=== PATIENT | male | born 1955 | race African-American/Black ===

== ENCOUNTER 2017-07-10 16:04 | Inpatient (IN) | payer MEDICAID ==
[~2017-07-10] VITALS: Ht 185.4 cm; Wt 95.7 kg
[2017-07-10 17:13] LABS: Basophils # (auto) 0.2 uL; Basophils % (auto) 1.3 % (0.0-2.0); Eosinophils # (auto) 0.1 uL; Hematocrit 40.2 % (41.0-53.0); Hemoglobin 13.5 g/dL (13.5-17.5); Lymphocytes # (auto) 2.3 uL; Mean Corpuscular Hemoglobin 32.7 pg (28.0-32.0); Mean Corpuscular Hgb Conc. 33.5 g/dL (32.0-36.0); Mean Corpuscular Volume 97.6 fL (80.0-100.0); Monocytes # (auto) 1.6 uL; Monocytes % (auto) 13.5 % (0.0-12.0); Neutrophils # (auto) 7.9 uL; Neutrophils % (auto) 65.2 % (37.0-80.0); Nucleated Red Blood Cells % 0.1 %; Platelet Count (auto) 355 10^3/uL (140-450); Red Blood Cells 4.12 10^6/uL (4.5-5.90); Red Cell Distribution Width 12.4 % (11.8-14.3); White Blood Cell 12.1 10^3/uL (4.4-10.8)
[2017-07-10 18:37] LABS: BUN/Creatinine Ratio 12.6; Bilirubin, Total 0.9 mg/dL (0.2-1.0); Calcium 8.9 mg/dL (8.5-10.1); Potassium 3.4 mmol/L (3.5-5.1); Total Protein 8.6 g/dL (6.4-8.2)
[2017-07-10 23:20] LABS: INR 1.13 (0.9-1.15); Prothrombin Time 12.3 sec (9.37-12.3)
[2017-07-11] MEDS ORDERED: ENOXAPARIN SOD 100 MG/1 ML SYRINGE SC ONE (00:45)
[2017-07-11 00:53] LABS: Urine Bacteria NONE SEEN /hpf (None Seen); Urine Blood Negative /uL (Negative); Urine Specific Gravity 1.009 (1.001-1.035); Urine WBC 1 /hpf (0 - 3)
[2017-07-11] MEDS ORDERED: HYDROcodone-ACET 5/325MG TAB PO ONE (01:00)
[2017-07-11] MEDS ORDERED: IOHEXOL 350 MG/ML 100ML IJ ONE (01:40)
[2017-07-11] MEDS ORDERED: ONDANSETRON HCL 4 MG/2 ML VIAL IV ONE (04:30)
[2017-07-11] MEDS ORDERED: HYDROmorphone HCL 2 MG/ML VL IV ONE (04:30)
[2017-07-11] MEDS ORDERED: NITROGLYCERIN 0.4 MG SL TAB SL PRN (05:45)
[2017-07-11] MEDS ORDERED: TEMAZEPAM 15 MG CAP PO PRN (05:45)
[2017-07-11] MEDS ORDERED: ONDANSETRON HCL 4 MG/2 ML VIAL IV PRN (05:45)
[2017-07-11] MEDS ORDERED: ACETAMINOPHEN 325 MG TAB PO PRN (05:45)
[2017-07-11] MEDS ORDERED: MORPHINE SULFATE 10 MG/ML INJ 1ML SDV IV PRN ×2 (05:45→13:45)
[2017-07-11] MEDS ORDERED: HEPARIN DRIP/D5W 100UNITS/ML 250 ML IV SCH (05:51)
[2017-07-11] MEDS ORDERED: HEPARIN SODIUM (PORCINE) 5000 UNITS/ML 1ML VIAL IV ONE (06:00)
[2017-07-11] MEDS: SODIUM CHLORIDE 0.9% 1,000 ML IV SCH ×2 (06:07→18:35)
[2017-07-11 06:56] LABS: Basophils # (auto) 0.1 uL; Eosinophils # (auto) 0.1 uL; Eosinophils % (auto) 0.8 % (0.0-7.0); Hemoglobin 13.3 g/dL (13.5-17.5); Lymphocytes # (auto) 2.7 uL; Lymphocytes % (auto) 22.7 % (10.0-50.0); Mean Corpuscular Hemoglobin 33.3 pg (28.0-32.0); Mean Corpuscular Volume 97.9 fL (80.0-100.0); Monocytes # (auto) 1.4 uL; Monocytes % (auto) 11.4 % (0.0-12.0); Neutrophils # (auto) 7.7 uL; Neutrophils % (auto) 64.1 % (37.0-80.0); Nucleated Red Blood Cells % 0.1 %; Platelet Count (auto) 325 10^3/uL (140-450); Red Blood Cells 3.98 10^6/uL (4.5-5.90); Red Cell Distribution Width 12.1 % (11.8-14.3)
[2017-07-11 07:24] LABS: INR 1.23 (0.9-1.15); Prothrombin Time 13.4 sec (9.37-12.3)
[2017-07-11 07:49] LABS: Partial Thromboplastin Time 95.8 sec (22.64-33.71)
[2017-07-11] MEDS ORDERED: CHOL20007 PO (08:59)
[2017-07-11] MEDS ORDERED: KEP500T PO (08:59)
[2017-07-11] MEDS ORDERED: CEPH-37 PO (08:59)
[2017-07-11] MEDS ORDERED: FAM20T PO (08:59)
[2017-07-11] MEDS ORDERED: AMAN100C12 PO (08:59)
[2017-07-11] MEDS ORDERED: CARV6.2551 PO (08:59)
[2017-07-11] MEDS ORDERED: WARF4TAB33 PO (08:59)
[2017-07-11] MEDS ORDERED: FOLI1TAB6 PO (08:59)
[2017-07-11] MEDS ORDERED: AMLO10TA2 PO (08:59)
[2017-07-11 09:00] VITALS: BP 125/74
[2017-07-11] MEDS: HEPARIN DRIP/D5W 100UNITS/ML 250 ML IV SCH ×2 (10:27→23:52)
[2017-07-11] MEDS: LEVETIRACETAM 500 MG TAB PO SCH ×2 (10:30→22:18)
[2017-07-11] MEDS: HYDROcodone-ACET 5/325MG TAB PO PRN ×3 (10:31→23:24)
[2017-07-11] MEDS: CARVEDILOL 3.125 MG TAB PO SCH ×2 (10:31→22:19)
[2017-07-11] MEDS: FAMOTIDINE 20 MG TAB PO SCH ×2 (10:31→22:20)
[2017-07-11] MEDS: amLODIPine BESYLATE 5 MG TAB PO SCH (10:32)
[2017-07-11] MEDS ORDERED: ENOXAPARIN SOD 100 MG/1 ML SYRINGE SC SCH (12:00)
[2017-07-11 13:00] VITALS: BP 107/64
[2017-07-11] MEDS: MORPHINE SULFATE 10 MG/ML INJ 1ML SDV IV PRN ×2 (14:00→20:43)
[2017-07-11] MEDS ORDERED: POTASSIUM CHL 20 Meq TABLET PO ONE (15:15)
[2017-07-11 15:33] LABS: Urine Bacteria FEW /hpf (None Seen); Urine Blood Negative /uL (Negative); Urine WBC 1 /hpf (0 - 3)
[2017-07-11 15:51] LABS: INR 1.17 (0.9-1.15); Prothrombin Time 12.8 sec (9.37-12.3)
[2017-07-11 15:56] LABS: Partial Thromboplastin Time 75.8 sec (22.64-33.71)
[2017-07-11 16:14] LABS: Urine Specific Gravity > 1.050 (1.001-1.035)
[2017-07-11 17:00] VITALS: BP 119/65
[2017-07-11 22:00] VITALS: BP 118/59
[2017-07-11] MEDS ORDERED: PATIENTS OWN MEDICATION (simvastatin 20 MG) PO SCH (22:00)
[2017-07-11] MEDS: ATORVASTATIN 20 MG TAB PO SCH (22:19)
[2017-07-12] MEDS: MORPHINE SULFATE 10 MG/ML INJ 1ML SDV IV PRN ×2 (03:17→11:04)
[2017-07-12 03:47] LABS: Albumin 2.6 g/dL (3.4-5.0); INR 1.14 (0.9-1.15); Partial Thromboplastin Time 58.2 sec (22.64-33.71); Potassium 3.8 mmol/L (3.5-5.1); Prothrombin Time 12.4 sec (9.37-12.3)
[2017-07-12 03:50] LABS: BUN/Creatinine Ratio 13.5; Total Protein 7.5 g/dL (6.4-8.2)
[2017-07-12 04:03] LABS: Bilirubin, Total 0.5 mg/dL (0.2-1.0)
[2017-07-12 05:38] VITALS: BP 141/70
[2017-07-12] MEDS: SODIUM CHLORIDE 0.9% 1,000 ML IV SCH ×2 (06:59→12:10)
[2017-07-12] MEDS ORDERED: LIDOCAINE 2%HCL (LOCAL ANESTH.) INJ 20ML MDV ONE (07:37)
[2017-07-12] MEDS ORDERED: IOHEXOL 350 MG/ML 100ML IJ ONE (07:37)
[2017-07-12] MEDS ORDERED: fentaNYL CITRATE 100 MCG/2 ML VL ONE (07:48)
[2017-07-12] MEDS ORDERED: MIDAZOLAM HCL 1MG/1ML-2 ML VIAL ONE (07:48)
[2017-07-12] MEDS ORDERED: EPTIFIBATIDE INJ (2MG/ML) 10ML VIAL IV ONE (07:49)
[2017-07-12 09:00] VITALS: BP 142/84
[2017-07-12] MEDS ORDERED: ALTEPLASE (RECOMBINANT) 100 MG in STERILE WATER 100 ML IV ONE (09:00)
[2017-07-12] MEDS: CARVEDILOL 3.125 MG TAB PO SCH ×2 (10:23→22:02)
[2017-07-12] MEDS: LEVETIRACETAM 500 MG TAB PO SCH ×2 (10:23→21:42)
[2017-07-12] MEDS: amLODIPine BESYLATE 5 MG TAB PO SCH (10:24)
[2017-07-12 13:00] VITALS: BP 110/55
[2017-07-12] MEDS: HYDROcodone-ACET 5/325MG TAB PO PRN ×2 (15:31→20:06)
[2017-07-12 17:00] VITALS: BP 133/71
[2017-07-12] MEDS: ATORVASTATIN 20 MG TAB PO SCH (21:42)
[2017-07-12 22:00] VITALS: BP 128/71
[2017-07-13] MEDS: HYDROcodone-ACET 5/325MG TAB PO PRN ×3 (01:06→09:22)
[2017-07-13] MEDS: SODIUM CHLORIDE 0.9% 1,000 ML IV SCH (02:47)
[2017-07-13 05:48] VITALS: BP 145/73
[2017-07-13 06:52] LABS: Basophils # (auto) 0.1 uL; Basophils % (auto) 1.2 % (0.0-2.0); Eosinophils # (auto) 0.2 uL; Eosinophils % (auto) 1.6 % (0.0-7.0); Hematocrit 38.2 % (41.0-53.0); Hemoglobin 13.1 g/dL (13.5-17.5); Lymphocytes # (auto) 2.3 uL; Lymphocytes % (auto) 19.3 % (10.0-50.0); Mean Corpuscular Hemoglobin 33.3 pg (28.0-32.0); Mean Corpuscular Hgb Conc. 34.4 g/dL (32.0-36.0); Mean Corpuscular Volume 96.8 fL (80.0-100.0); Monocytes # (auto) 1.4 uL; Monocytes % (auto) 11.5 % (0.0-12.0); Neutrophils # (auto) 7.8 uL; Neutrophils % (auto) 66.4 % (37.0-80.0); Nucleated Red Blood Cells % 0.1 %; Platelet Count (auto) 345 10^3/uL (140-450); Red Blood Cells 3.94 10^6/uL (4.5-5.90); White Blood Cell 11.8 10^3/uL (4.4-10.8)
[2017-07-13 07:06] LABS: Calcium 9.5 mg/dL (8.5-10.1); Potassium 3.7 mmol/L (3.5-5.1)
[2017-07-13 07:08] LABS: BUN/Creatinine Ratio 11.5
[2017-07-13 09:00] VITALS: BP 148/68
[2017-07-13] MEDS: LEVETIRACETAM 500 MG TAB PO SCH (09:20)
[2017-07-13] MEDS: CARVEDILOL 3.125 MG TAB PO SCH (09:20)
[2017-07-13] MEDS: amLODIPine BESYLATE 5 MG TAB PO SCH (09:21)
[2017-07-13 13:00] VITALS: BP 110/59
[2017-07-13 15:28] VITALS: BP 110/59
[2017-07-13 17:00] VITALS: BP 145/72
== END 2017-07-13 17:20 | disposition home or self-care (01) | DRG 181 ==
LOC: EDBD 16:04 → ER 16:04 → TELE 16:05 → TELE-WESTW 07-11 08:09
PROVIDERS: ADMIT Nurse Practitioner; ATTEND Internal Medicine
PROC: B41G1ZZ Fluoroscopy of Left Lower Extremity Arteries using Low Osmolar Contrast (ICD-10-PCS; principal; 2017-07-12)
PROC: 047L3ZZ Dilation of Left Femoral Artery, Percutaneous Approach (ICD-10-PCS; 2017-07-12)
PROC: 04CL3ZZ Extirpation of Matter from Left Femoral Artery, Percutaneous Approach (ICD-10-PCS; 2017-07-12)
PROC: B41F1ZZ Fluoroscopy of Right Lower Extremity Arteries using Low Osmolar Contrast (ICD-10-PCS; 2017-07-12)
DX: T82.898A Other specified complication of vascular prosthetic devices, implants and grafts, initial encounter (principal); E44.0 Moderate protein-calorie malnutrition; E11.51 Type 2 diabetes mellitus with diabetic peripheral angiopathy without gangrene; D68.69 Other thrombophilia; I10 Essential (primary) hypertension; E87.6 Hypokalemia; G40.909 Epilepsy, unspecified, not intractable, without status epilepticus; F17.200 Nicotine dependence, unspecified, uncomplicated; H40.9 Unspecified glaucoma; Y83.8 Other surgical procedures as the cause of abnormal reaction of the patient, or of later complication, without mention of misadventure at the time of the procedure; Z53.9 Procedure and treatment not carried out, unspecified reason; Z86.718 Personal history of other venous thrombosis and embolism; Z71.6 Tobacco abuse counseling; Z59.0 Homelessness; Z83.3 Family history of diabetes mellitus; Z80.9 Family history of malignant neoplasm, unspecified; Z82.0 Family history of epilepsy and other diseases of the nervous system; Y92.89 Other specified places as the place of occurrence of the external cause
CPT/HCPCS: 34201; 36415; 37224; 71045; 73706; 75716; 80048; 80053; 81001; 83735; 85025; 85610; 85730; 87086; 93926; 93971; 96374; 96375; 99152; J2250; J2405

== ENCOUNTER 2017-07-28 23:53 | Emergency (ER) | payer MEDICAID ==
[~2017-07-28] VITALS: Ht 175.3 cm; Wt 63.5 kg
[~2017-07-28 23:53] MED LIST: AMAN100C12 PO; AMLO10TA2 PO; CARV6.2551 PO; CEPH-37 PO; CHOL20007 PO; FAM20T PO; FOLI1TAB6 PO; KEP500T PO; WARF4TAB33 PO
[2017-07-29 01:20] LABS: Basophils # (auto) 0.1 uL; Basophils % (auto) 0.6 % (0.0-2.0); Eosinophils # (auto) 0.2 uL; Eosinophils % (auto) 1.1 % (0.0-7.0); Hematocrit 35.1 % (41.0-53.0); Hemoglobin 11.8 g/dL (13.5-17.5); Lymphocytes # (auto) 2.8 uL; Lymphocytes % (auto) 16.2 % (10.0-50.0); Mean Corpuscular Hemoglobin 31.9 pg (28.0-32.0); Mean Corpuscular Hgb Conc. 33.5 g/dL (32.0-36.0); Mean Corpuscular Volume 95.3 fL (80.0-100.0); Monocytes # (auto) 1.7 uL; Neutrophils # (auto) 12.6 uL; Neutrophils % (auto) 72.1 % (37.0-80.0); Nucleated Red Blood Cells % 0.1 %; Platelet Count (auto) 399 10^3/uL (140-450); Red Blood Cells 3.69 10^6/uL (4.5-5.90); Red Cell Distribution Width 12.8 % (11.8-14.3); White Blood Cell 17.4 10^3/uL (4.4-10.8)
[2017-07-29 01:38] LABS: Albumin 2.6 g/dL (3.4-5.0); BUN/Creatinine Ratio 18.5; Calcium 9.1 mg/dL (8.5-10.1); INR 1.53 (0.9-1.15); Magnesium 2.1 mg/dL (1.6-2.6); Partial Thromboplastin Time 40.2 sec (22.64-33.71); Potassium 3.6 mmol/L (3.5-5.1); Prothrombin Time 16.8 sec (9.37-12.3)
[2017-07-29 01:44] LABS: Bilirubin, Total 0.9 mg/dL (0.2-1.0); Total Protein 8.4 g/dL (6.4-8.2)
[2017-07-29] MEDS ORDERED: MEPERIDINE HCL (50 MG/ML) 1 ML VIAL IV ONE (02:45)
[2017-07-29] MEDS ORDERED: ONDANSETRON HCL 4 MG/2 ML VIAL IV ONE (02:45)
[2017-07-29 04:20] LABS: Urine Bacteria NONE SEEN /hpf (None Seen); Urine Blood Negative /uL (Negative); Urine Specific Gravity 1.028 (1.001-1.035); Urine WBC 8 /hpf (0 - 3)
[2017-07-29 07:14] VITALS: BP 120/67
== END 2017-07-29 07:25 | disposition short-term general hospital (02) ==
LOC: EDBD 23:53 → ER 07-29 00:01
DX: I70.76 Atherosclerosis of other type of bypass graft(s) of the extremities with gangrene (principal); I10 Essential (primary) hypertension; Z79.899 Other long term (current) drug therapy
CPT/HCPCS: 36415; 71045; 80053; 81001; 83605; 83735; 83880; 84484; 85025; 85379; 85610; 85730; 93005; 96374; 96375; 99285; J2175; J2405